=== PATIENT | male | born 1995 | race Two or more races ===

== ENCOUNTER 2019-10-13 16:45 | Emergency (ER) | payer OTHER ==
[~2019-10-13] VITALS: Ht 175.3 cm; Wt 82.6 kg
[2019-10-13] MEDS ORDERED: LIDOCAINE HCL 1% 20 ML VIAL TP ONE (17:45)
[2019-10-13] MEDS ORDERED: HYDROCODONE/APAP 5-325MG TABLET PO ONE (17:45)
[2019-10-13] MEDS ORDERED: LIDOCAINE HCL 1% 20 ML VIAL ONE (18:20)
[2019-10-13] MEDS ORDERED: HYDROCODONE/APAP 5-325MG TABLET ONE (18:21)
--- NOTE | 2019-10-13 18:35 | NUR ---
pending xray results
--- NOTE | 2019-10-13 18:35 | NUR ---
pt able to tolerate procedure done by argentina COLLAZO
--- NOTE | 2019-10-13 19:05 | NUR ---
Patient discharged to home in stable condition. Written and verbal after care instructions given. Patient verbalizes understanding of instructions. Stressed follow up or return to ER for worsening s/s.
[2019-10-13 19:06] VITALS: BP 128/78
== END 2019-10-13 19:07 | disposition home or self-care (01) ==
LOC: ER 16:48
DX: S91.331A Puncture wound without foreign body, right foot, initial encounter (principal); W56.81XA Bitten by other nonvenomous marine animals, initial encounter; Y92.832 Beach as the place of occurrence of the external cause
CPT/HCPCS: 73630; 96372; 99283; J3490; A4663

== ENCOUNTER 2020-04-05 15:27 | Emergency (ER) | payer OTHER ==
[~2020-04-05] VITALS: Ht 175.3 cm; Wt 86.2 kg
[2020-04-05] MEDS ORDERED: LORAZEPAM 0.5 MG TABLET PO ONE (15:45)
[2020-04-05] MEDS ORDERED: LORAZEPAM 1 MG TABLET ONE (15:52)
--- NOTE | 2020-04-05 15:52 | NUR ---
PT WAS EVALUATED BY DR CAMARGO. PT WAS D/C'd TO HOME. D/C INSTRUCTIONS GIVEN TO THE PT BY DR CAMARGO.
[2020-04-05 15:53] VITALS: BP 129/72
== END 2020-04-05 15:54 | disposition home or self-care (01) ==
LOC: ER 15:28
DX: F41.9 Anxiety disorder, unspecified (principal); F43.0 Acute stress reaction; F10.11 Alcohol abuse, in remission
CPT/HCPCS: A4663

== ENCOUNTER 2020-08-19 21:00 | Emergency (ER) | payer OTHER ==
[~2020-08-19] VITALS: Ht 175.3 cm; Wt 86.2 kg
--- NOTE | 2020-08-19 21:10 | NUR ---
MD BIRGIT DIETRICH in room with patient to do MSE.
[2020-08-19] MEDS ORDERED: AMOX-430 PO (21:20)
[2020-08-19] MEDS ORDERED: ONDA4TAB11 PO (21:20)
[2020-08-19] MEDS ORDERED: ONDANSETRON ODT 4 MG TAB.RAPDIS SL ONE (21:30)
[2020-08-19] MEDS ORDERED: LET TOPICAL SOLUTION 8 ML UDC ONE (21:30)
[2020-08-19] MEDS ORDERED: AMOXICILLIN-CLAVUL 875-125MG TABLET PO ONE (21:30)
[2020-08-19] MEDS ORDERED: AMOXICILLIN-CLAVUL 875-125MG TABLET ONE ×2 (21:43→21:45)
[2020-08-19] MEDS ORDERED: ONDANSETRON ODT 4 MG TAB.RAPDIS ONE (21:44)
[2020-08-19 22:00] VITALS: BP 106/88
--- NOTE | 2020-08-19 22:00 | NUR ---
Patient discharged to home in stable condition. Written and verbal after care instructions given. Patient verbalizes understanding of instructions. Stressed follow up or return to ER for worsening s/s. Patient ambulates with steady gait, received Rx, and left with all belongings.
== END 2020-08-19 22:00 | disposition home or self-care (01) ==
LOC: ER 21:03
DX: S01.81XA Laceration without foreign body of other part of head, initial encounter (principal); W54.0XXA Bitten by dog, initial encounter; Y93.9 Activity, unspecified; Y92.89 Other specified places as the place of occurrence of the external cause
CPT/HCPCS: A4663; J3490; Q0162

== ENCOUNTER 2022-01-18 20:29 | Emergency (ER) | payer SELFPAY ==
[~2022-01-18 20:29] MED LIST: AMOX-430 PO; ONDA4TAB11 PO
--- NOTE | 2022-01-18 21:40 | NUR ---
Called patient to be triaged but was not present in the waiting room or outside of ER
--- NOTE | 2022-01-18 22:00 | NUR ---
Patient was called to be triaged but was not present in the ER or outside of waiting room.
--- NOTE | 2022-01-18 23:30 | NUR ---
Patient was called to be triaged but was not present in the waiting room or outside of ER. PATIENT WAS NOT TRIAGED OR SEEN BY ERMD.
[2022-01-19] MEDS ORDERED: SERT100T PO (08:51)
== END 2022-01-18 23:30 | disposition left against medical advice (07) ==
LOC: ER 20:30
DX: Z53.21 Procedure and treatment not carried out due to patient leaving prior to being seen by health care provider (principal)

== ENCOUNTER 2022-01-19 08:26 | Emergency (ER) | payer OTHER ==
[~2022-01-19] VITALS: Ht 175.3 cm; Wt 88.5 kg
--- NOTE | 2022-01-19 08:45 | NUR ---
Patient seen by
[2022-01-19] MEDS ORDERED: SERT100T PO (08:51)
--- NOTE | 2022-01-19 09:05 | NUR ---
DCD instructions and prescription given to pt. who verbalized understanding. pt. left room ambulatory [id number].
== END 2022-01-19 09:06 | disposition home or self-care (01) ==
LOC: ER 08:26
DX: F32.A Depression, unspecified (principal)
CPT/HCPCS: A4663

== ENCOUNTER 2024-07-10 13:32 | Emergency (ER) | payer OTHER ==
[~2024-07-10] VITALS: Ht 175.3 cm; Wt 90.3 kg
[~2024-07-10 13:32] MED LIST changes: +SERT100T PO
[2024-07-10] MEDS ORDERED: SERT50TA (13:44)
[2024-07-10] MEDS ORDERED: SERT-439 PO (14:23)
[2024-07-10 14:35] VITALS: BP 149/84; TEMP 98; O2SAT 97
== END 2024-07-10 14:36 | disposition home or self-care (01) ==
LOC: ER 13:32
DX: F32.A Depression, unspecified (principal); Z76.0 Encounter for issue of repeat prescription; F17.200 Nicotine dependence, unspecified, uncomplicated; F41.9 Anxiety disorder, unspecified; Z79.899 Other long term (current) drug therapy; Z88.7 Allergy status to serum and vaccine
CPT/HCPCS: A4606; A4663